=== PATIENT | male | born 1950 | race Caucasian/White ===

== ENCOUNTER 2022-02-24 09:09 | Observation (INO) | payer MEDICARE ==
[~2022-02-24] VITALS: Ht 177.8 cm; Wt 98.9 kg
[2022-02-24 09:15] VITALS: BP_SYST 145
[2022-02-24] MEDS ORDERED: ONDANSETRON 4 MG ODT TAB PO ONE (09:15)
[2022-02-24 09:52] LABS: BASOPHILS % (AUTO) 0.4 % (0.0-2.0); EOSINOPHILS % (AUTO) 0.6 % (0.0-4.0); HEMATOCRIT 35.9 % (36-54); HEMOGLOBIN 12.3 g/dL (14.0-18.0); LYMPHOCYTES # (AUTO) 0.8 K/uL (1.0-5.5); LYMPHOCYTES % (AUTO) 10.9 % (20.5-51.5); MEAN CORPUSCULAR HEMOGLOBIN 30 pg (27-31); MEAN CORPUSCULAR HGB CONC 34 % (32-36); MEAN CORPUSCULAR VOLUME 88 fL (79.0-98.0); MONOCYTES # (AUTO) 0.4 K/uL (0.0-1.0); MONOCYTES % (AUTO) 4.6 % (1.7-9.3); NEUTROPHILS # (AUTO) 6.5 K/uL (1.8-7.7); NEUTROPHILS % (AUTO) 83.5 % (40.0-70.0); PLATELET COUNT (AUTO) 130 K/uL (130-430); WHITE BLOOD COUNT (AUTO) 7.7 K/uL (4.8-10.8)
--- NOTE | 2022-02-24 10:00 | NUR ---
MD DR DANIELSON AT BEDSIDE
--- NOTE | 2022-02-24 10:07 | NUR ---
PT BIBA AWAKE AND ALERT, AOX4 NO SOB OR DISTRESS. PT C/O N/V STARTING TODAY W/ HEADACHE. PT AFIBRILE. PT DENIES PAIN.
[2022-02-24 10:19] LABS: ANION GAP 8 (5-15); CALCIUM 9.1 mg/dL (8.4-11.0); CHLORIDE 105 mmol/L (98-107); CREATININE 1.49 mg/dL (0.55-1.30); GLUCOSE 135 mg/dL (70-99); UREA NITROGEN, BLOOD 36 mg/dL (8-21)
[2022-02-24 10:24] LABS: PROTHROMBIN TIME 10.8 SECS (9.5-12.5)
[2022-02-24 10:31] LABS: ALANINE AMINOTRANSFERASE 19 U/L (12-78); ALBUMIN 3.7 g/dL (3.4-4.8); AMYLASE 46 U/L (0-100); ASPARTATE AMINOTRANSFERASE 18 U/L (10-37); LIPASE 58 U/L (73-393); TOTAL BILIRUBIN 0.6 mg/dL (0.0-1.0)
[2022-02-24] MEDS ORDERED: MECLIZINE HCL 25 MG TABLET (ANITVERT) PO ONE (10:45)
[2022-02-24] MEDS ORDERED: METOCLOPRAMIDE HCL 10 MG/2 ML VIAL IVP ONE (10:45)
[2022-02-24] MEDS: NACL 0.9% 1,000 ML IV SCH (13:53)
--- NOTE | 2022-02-24 13:55 | NUR ---
Admit bed requested Patient will be admitted to care of Dr. SIFUENTES. Admitted to MED SURGE unit. Diagnosis INTRACTABLE VERTIGO Inpatient (Yes or No) NO Observation (Yes or No) YES Orientation concerns or request close to nursing station (Yes or No) NO Covid Status PENDING On vent or bipap NO Isolation requirements NO Needs a sitter NO From Home (Yes or if No enter name of facility) HOME Requires Dialysis (Yes or No) NO Med Rec Completed (Yes of No) YES
[2022-02-24] MEDS ORDERED: SPIR25TA PO (14:09)
[2022-02-24] MEDS ORDERED: INSU100V10 SQ (14:09)
[2022-02-24] MEDS ORDERED: NEU400 PO (14:09)
[2022-02-24] MEDS ORDERED: LISI40TA13 PO (14:09)
[2022-02-24] MEDS ORDERED: NPH,100V2 SQ (14:09)
[2022-02-24] MEDS ORDERED: ISOS30TA85 PO (14:09)
[2022-02-24] MEDS ORDERED: ROSU40TA PO (14:09)
[2022-02-24] MEDS ORDERED: CLOP75TA32 PO (14:09)
[2022-02-24] MEDS ORDERED: CARV25TA55 PO (14:09)
[2022-02-24] MEDS ORDERED: DEXTROSE 50% JECT 50 ML DISP.SYRIN IVP PRN (15:15)
[2022-02-24] MEDS ORDERED: POTASSIUM CHLORIDE 20 MEQ TAB.PRT.SR PO PRN (15:15)
[2022-02-24] MEDS ORDERED: DOCUSATE SODIUM 100 MG CAPSULE PO PRN (15:15)
[2022-02-24] MEDS ORDERED: MUPIROCIN 2% TOPICAL OINTMENT 22 GM NS PRN (15:15)
[2022-02-24] MEDS ORDERED: MORPHINE 2 MG/ML INJ. SYRINGE IVP PRN ×2 (15:15)
[2022-02-24] MEDS ORDERED: MAGNESIUM SULFATE 50 ML IV PRN (15:15)
[2022-02-24] MEDS ORDERED: NALOXONE HCL 0.4 MG/ML AMP (NARCAN) IVP PRN ×2 (15:15)
[2022-02-24] MEDS ORDERED: MECLIZINE HCL 25 MG TABLET (ANITVERT) PO PRN (15:15)
[2022-02-24] MEDS ORDERED: ZOLPIDEM TARTRATE 5 MG TABLET PO PRN (15:15)
[2022-02-24] MEDS ORDERED: ACETAMINOPHEN 325 MG TABLET PO PRN (15:15)
[2022-02-24] MEDS ORDERED: ONDANSETRON HCL 4 MG/2 ML VIAL IVP PRN (15:15)
[2022-02-24] MEDS ORDERED: LORazepam 2 MG/ML VIAL IVP PRN (15:15)
--- NOTE | 2022-02-24 15:55 | NUR ---
CONSULTATION PAGED REASON FOR CONSULTATION INT VERTIGO WAS CONSULT CALED?Y PERSON WHO WAS NOTIFIED:TEXT ESSAGED ARACELY INFANTE CONSULTING PHYSICIAN:ARACELY INFANTE SYSTEMS TEST ANALYST SPECIALTY:NEURO SYSTEMS TEST ANALYST PHONE NUMBER:[phone] REQUESTING PHYSICIAN:[email or web address]
[2022-02-24 17:42] VITALS: BP_SYST 123
[2022-02-24 18:31] VITALS: BP_SYST 123
[2022-02-24 20:25] VITALS: BP_SYST 117
--- NOTE | 2022-02-24 20:25 | NUR ---
Opening notes Pt AAOx4, VSS, afebrile. Pt denies feeling dizzy. No N/V noted. IVF infusing L. hand 22G clear and patent at ordered rate. CAll light within reach. Bed low, locked, siderails up x3, alarm on. To monitor.
[2022-02-24] MEDS: INSULIN LISPRO SLIDING SCALE 100 UNITS/ML, 3 ML VIAL (humaLOG) SUBCUT PRN (20:52)
--- NOTE | 2022-02-24 23:47 | NUR ---
Patient will be admitted to care of DR SIFUENTES. Admitted to TELE unit. Will go to room 125A. Belongings list completed. Complete and up to date summary report printed. SBAR report to be given at bedside with opportunity for questions.
[2022-02-25 00:25] VITALS: BP_SYST 109
[2022-02-25] MEDS: NACL 0.9% 1,000 ML IV SCH (05:34)
--- NOTE | 2022-02-25 05:58 | NUR ---
Closing notes Pt asleep, easily awakens no s/s distress noted. IVF infusing at ordered rate L. hand Fall precautions in place. Bed low, locked, siderails up x3, alarm on. To endorse to AM nurse.
[2022-02-25 07:03] LABS: BASOPHILS % (AUTO) 0.7 % (0.0-2.0); EOSINOPHILS # (AUTO) 0.1 K/uL (0.0-0.4); EOSINOPHILS % (AUTO) 1.3 % (0.0-4.0); HEMOGLOBIN 11.9 g/dL (14.0-18.0); LYMPHOCYTES # (AUTO) 1.3 K/uL (1.0-5.5); LYMPHOCYTES % (AUTO) 19.2 % (20.5-51.5); MEAN CORPUSCULAR HEMOGLOBIN 30 pg (27-31); MEAN CORPUSCULAR HGB CONC 34 % (32-36); MEAN CORPUSCULAR VOLUME 88 fL (79.0-98.0); MONOCYTES # (AUTO) 0.6 K/uL (0.0-1.0); NEUTROPHILS # (AUTO) 4.6 K/uL (1.8-7.7); NEUTROPHILS % (AUTO) 69.8 % (40.0-70.0); PLATELET COUNT (AUTO) 129 K/uL (130-430); RED BLOOD CELL COUNT(AUTO) 3.97 MIL/uL (4.2-6.2); RED CELL DISTRIBUTION WIDTH 15.4 % (9.0-15.0); WHITE BLOOD COUNT (AUTO) 6.6 K/uL (4.8-10.8)
[2022-02-25 07:28] LABS: ANION GAP 6 (5-15); CALCIUM 8.8 mg/dL (8.4-11.0); CHLORIDE 104 mmol/L (98-107); CREATININE 1.29 mg/dL (0.55-1.30); GLUCOSE 127 mg/dL (70-99); UREA NITROGEN, BLOOD 30 mg/dL (8-21)
[2022-02-25 07:57] VITALS: BP_SYST 128
[2022-02-25] MEDS ORDERED: guaiFENesin 200 MG/CODEINE 20 MG/ 10 ML UDC PO PRN (08:45)
[2022-02-25] MEDS ORDERED: MECL-109 PO (08:48)
[2022-02-25] MEDS ORDERED: ATORVASTATIN 20 MG TABLET PO SCH (09:00)
[2022-02-25] MEDS ORDERED: SPIRONOLACTONE 25 MG TABLET (ALDACTONE) PO SCH (09:00)
[2022-02-25] MEDS ORDERED: GABAPENTIN 400 MG CAPSULE PO SCH (09:00)
[2022-02-25] MEDS ORDERED: CLOPIDOGREL BISULFATE 75 MG TABLET PO SCH (09:00)
[2022-02-25] MEDS ORDERED: lisinopriL 20 MG TABLET PO SCH (09:00)
--- NOTE | 2022-02-25 10:00 | NUR ---
PATIENT IS INDEPENDENT IN HIS FUNCTIONAL MOBILITY. STEADY GAIT. HE MAY USE A SINGLE POINT CANE NEEDED.
[2022-02-25 10:41] VITALS: BP_SYST 117
[2022-02-25 11:45] VITALS: BP_SYST 120
[2022-02-25] MEDS: INSULIN LISPRO SLIDING SCALE 100 UNITS/ML, 3 ML VIAL (humaLOG) SUBCUT PRN (12:10)
--- NOTE | 2022-02-25 12:40 | NUR ---
Discharge Planning: DCP faxed pt referral to [facility] [phone] contracted with insurance. DCP to follow up
--- NOTE | 2022-02-25 12:47 | NUR ---
DISCHARGE INSTRUCTIONS PROVIDED TO PT. ALL QUESTIONS AND CONCERNS ADDRESSED. NO DISTRESS NOTED. NO EPISODE OF VERTIGO/DIZZINESS NOTED. PT CLEARED BY PHYSICAL THERAPY. S/W NICOLETTE, CARD SELLER AND STATED SHE IS WORKING ON THE HOME HEALTH FOR PHYSICAL THERAPY BUT PT OKAY TO GO HOME NOW, SHE STATED WHATEVER COMPANY PICKS UP FOR HIS HOME HEALTH PHYSICAL THERAPY, THE COMPANY WILL CONTACT PT DIRECTLY. EXPLAINED EVERYTHING TO PT. PT VERBALIZED UNDERSTANDING. IV REMOVED LEFT HAND WITH CATHETER INTACT. PT TOLERATED PROCEDURE WELL. PT DISCHARGED IN STABLE CONDITION.
== END 2022-02-25 13:10 | disposition home or self-care (01) ==
LOC: SED 09:09 → SMU 13:05 → INTOOBSV 13:05 → SMU 15:30
PROVIDERS: ADMIT General Practice; ATTEND General Practice
DX: H81.10 Benign paroxysmal vertigo, unspecified ear (principal); Z20.822 Contact with and (suspected) exposure to COVID-19; G90.9 Disorder of the autonomic nervous system, unspecified; E11.43 Type 2 diabetes mellitus with diabetic autonomic (poly)neuropathy; N17.0 Acute kidney failure with tubular necrosis; I10 Essential (primary) hypertension; D63.8 Anemia in other chronic diseases classified elsewhere; Z86.73 Personal history of transient ischemic attack (TIA), and cerebral infarction without residual deficits; I25.10 Atherosclerotic heart disease of native coronary artery without angina pectoris; Z95.1 Presence of aortocoronary bypass graft; Z95.5 Presence of coronary angioplasty implant and graft; Z96.653 Presence of artificial knee joint, bilateral; Z79.899 Other long term (current) drug therapy
CPT/HCPCS: 96361 ×2; 96372 ×2; 96374; 80053; 82150; 82962; 83690; 85025 ×2; 85610; 85730; 86886; 86900; 86901; 84484; 36415 ×2; 93005; 71045; 70450; 76376; 74176; 99285; 83605; 87426; 80048; 83735; 97162; 83036; J8597; Q0162; J2765; J7030 ×2; G0378 ×2